=== PATIENT | female | born 1960 | race African-American/Black ===

== ENCOUNTER 2019-01-14 12:10 | Inpatient (IN) | payer OTHER ==
[2019-01-14 13:52] VITALS: BMI 24.0
--- NOTE | 2019-01-14 16:15 | HP ---
COWS - Scale Resting Pulse: 0= [place] 80 or Below Sweatin= Chills/Flushing Restless Observation: 1= Difficult to Sit Still Pupil Size: 2= Moderately Dilated Bone or Joint Aches: 2= Severe Diffuse Aches Runny Nose/ Eye Tearin= Runny Nose/Eyes GI Upset > 30mins: 2= Nausea/Diarrhea Tremor Observation: 2= Slight Tremor Visible Yawning Observation: 1= 1-2x During Session Anxiety or Irritability: 2=Irritable/Anxious Goose Flesh Skin: 0=Smooth Skin COWS Score: 15 CIWA Score Nausea/Vomitin Muscle Tremors: 3 Anxiety: 3 Agitation: 4-Moderately Restless Paroxysmal Sweats: 2 Orientation: 0-Oriented Tacttile Disturbances: 0-None Auditory Disturbances: 0-None Visual Disturbances: 2-Mild Sensitivity Headache: 2-Mild CIWA-Ar Total Score: 18 - Admission Criteria [facility]ASAS Guidelines: Admission for Medically Managed Detox: Requires at least one of the followin. CIWA greater than 12 2. Seizures within the past 24 hours 3. Delirium tremens within the past 24 hours 4. Hallucinations within the past 24 hours 5. Acute intervention needed for co occurring medical disorder 6. Acute intervention needed for co occurring psychiatric disorder 7. Severe withdrawal that cannot be handled at a lower level of care (continued vomiting, continued diarrhea, abnormal vital signs) requiring intravenous medication and/or fluids 8. Patient presents the following: CIWA greater than 12 Admission Criteria Met: Admission criteria met Admission [facility] Chief Complaint: I NEED TO GET CLEAN MY PROGRAM SENT ME Allergies/Adverse Reactions: Allergies Allergy/AdvReac Type Severity Reaction Status Date / Time No Known Allergies Allergy Verified 01/14/19 13:36 History of Present Illness: RELAPSED 1 Y AGO PREVIOUSLY ABSTINENT X 20 YEARS BEGAN USING AGE 16 RECREATIONALLY BECAME PROBLEMATIC AGE 32 DETOX AND REHAB AGE 36 ABSTINENT THEN RELAPSED SECONDARY TO STRESS FROM LOSS OF MOTHER CURRENTLY IN OUTPT - Ebola screening Have you traveled outside of the country in the last 21 days: No Have you had contact with anyone from an Ebola affected area: No Do you have a fever: No - Review of Systems Constitutional: Loss of Appetite, Unintentional Wgt. Loss EENT: reports: Tearing Respiratory: reports: No Symptoms reported Cardiac: reports: No Symptoms Reported GI: reports: Nausea, Abdominal cramping : reports: No Symptoms Reported Musculoskeletal: reports: No Symptoms Reported Integumentary: reports: No Symptoms Reported Neuro: reports: Headache Endocrine: reports: Unexplained Weight Loss Hematology: reports: No Symptoms Reported Psychiatric: reports: Anxious, Depressed Patient History - Patient Medical History Hx Anemia: No Hx Asthma: No Hx Chronic Obstructive Pulmonary Disease (COPD): Yes Hx Cancer: No Hx Cardiac Disorders: Yes ([facility] IN 2017) Hx Congestive Heart Failure: No Hx Hypertension: Yes Hx Hypercholesterolemia: Yes Hx Pacemaker: No HX Cerebrovascular Accident: No Hx Seizures: No Hx Dementia: No Hx Diabetes: No Hx Gastrointestinal Disorders: No Hx Liver Disease: No Hx Genitourinary Disorders: No Hx Sexually Transmitted Disorders: No Hx Renal Disease (ESRD): No Hx Thyroid Disease: Yes (HYPERTHYROID) Hx Human Immunodeficiency Virus (HIV): No Hx Hepatitis C: No Hx Depression: Yes (NO MED OR PSYCH) Hx Suicide Attempt: No Hx Bipolar Disorder: No Hx Schizophrenia: No - Patient Surgical History Hx Cardiac Surgery: Yes Hx Hysterectomy: Yes (2002) - Reproductive History Patient is a Female of Child Bearing Age (11 -55 yrs old): No Last Menstrual Period: 12/28/02 - Smoking Cessation Smoking history: Current every day smoker Aproximately how many cigarettes per day: 10 Initiated information on smoking cessation: Yes 'Breaking Loose' booklet given: 01/14/19 - Substance & Tx. History Hx Alcohol Use: Yes Hx Substance Use: Yes Substance Use Type: Alcohol, Heroin - Substances abused Alcohol Substance route: Oral Frequency: 3-6 times per week Amount used: 18 0z beer (8 cans) Age of first use: 16 Date of last use: 01/13/19 Heroin Substance route: Oral Frequency: Daily Amount used: 6 bags Age of first use: 58 Date of last use: 01/13/19 Family Disease History - Family Disease History Family Disease History: Diabetes: Mother, CA: Mother, Other: Grandparent ( SUBSTANCE), Brother, Sister Admission Physical Exam BHS - Vital Signs Vital Signs: Vital Signs - 24 hr 01/14/19 13:43 Temperature 97.3 F L Pulse Rate 66 Respiratory 16 Rate Blood Pressure 159/82 - Physical General Appearance: Yes: Irritable, Sweating, Anxious HEENTM: Yes: EOMI Respiratory: Yes: Chest Non-Tender, Lungs Clear Neck: Yes: No masses,lesions,Nodules Breast: Yes: Breast Exam Deferred Cardiology: Yes: Within Normal Limits, Regular Rhythm, Regular Rate, S1, S2 Abdominal: Yes: Normal Bowel Sounds, Non Tender Genitourinary: Yes: Within Normal Limits Back: Yes: Within Normal Limits Musculoskeletal: Yes: Within Normal Limits Extremities: Yes: Within Normal Limits Neurological: Yes: Within Normal Limits Integumentary: Yes: Within Normal Limits Lymphatic: Yes: Within Normal Limits - Diagnostic (1) Opiate dependence Current Visit: Yes Status: Acute (2) Alcohol dependence in controlled environment Current Visit: Yes Status: Acute (3) Opiate withdrawal Current Visit: Yes Status: Acute (4) Alcohol withdrawal Current Visit: Yes Status: Acute (5) Coronary artery disease Current Visit: Yes Status: Acute (6) Stented coronary artery Current Visit: No Status: Chronic (7) Hyperthyroidism Current Visit: No Status: Chronic Breathalyzer - Breathalyzer Breathalyzer: 0 Urine Drug Screen - Test Device Lot number: [id number] Expiration date: 10/27/20 - Control Is test valid?: Yes - Results Drug screen NEGATIVE: No Urine drug screen results: FEN-Fentanyl, MOP-Opiates, MDMA-Ecstasy Inpatient Rehab Admission - Rehab Decision to Admit Inpatient rehab admission?: No
[2019-01-14] MEDS ORDERED: MENTHOL/PHENOL 1 EACH UD MM PRN (16:32)
[2019-01-14] MEDS ORDERED: MAGNESIUM CITRATE 300 ML BOTTLE PO PRN (16:32)
[2019-01-14] MEDS ORDERED: ACETAMINOPHEN 325 MG TABLET (FP) PO PRN (16:32)
[2019-01-14] MEDS ORDERED: IBUPROFEN 400 MG TABLET (FP) PO PRN (16:32)
[2019-01-14] MEDS ORDERED: cloNIDine HCL 0.1 MG TABLET PO PRN (16:32)
[2019-01-14] MEDS ORDERED: chlordiazePOXIDE HCL 10 MG CAPSULE PO PRN (16:32)
[2019-01-14] MEDS ORDERED: BISMUTH SUBSALICYLATE 524 MG/30 ML UD PO PRN (16:32)
[2019-01-14] MEDS ORDERED: MAGNESIUM HYDROX 2400MG/30ML ORAL SUSPENSION 30 ML CUP PO PRN (16:32)
[2019-01-14] MEDS ORDERED: MAG HYDROX/AL HYDROX/SIMETH 30 ML UNIT-DOSE CUP PO PRN (16:32)
[2019-01-14] MEDS ORDERED: METHADONE HCL 10 MG TABLET (FOR DETOX USE ONLY) PO ONE (17:15)
[2019-01-14] MEDS: BUDESONIDE/FORMETEROL FUMARATE 160/4.5 mcg INHALER IH SCH (22:33)
[2019-01-14] MEDS: MELATONIN 5 MG TABLETS PO PRN (22:34)
[2019-01-14] MEDS: ATORVASTATIN CA 80 MG TABLET (FP) PO SCH (22:34)
[2019-01-14] MEDS: THIAMINE HCL 100 MG TABLET (FP) PO SCH (22:34)
[2019-01-14] MEDS: LABETALOL HCL 200 MG TABLET (FP) PO SCH (22:34)
[2019-01-14] MEDS: chlordiazePOXIDE HCL 25 MG CAPSULE PO SCH (22:34)
[2019-01-15] MEDS: chlordiazePOXIDE HCL 25 MG CAPSULE PO SCH ×3 (05:33→20:55)
[2019-01-15] MEDS ORDERED: METHADONE HCL 5 MG TABLET (FOR DETOX USE ONLY) PO ONE (10:00)
[2019-01-15] MEDS: PRENATAL VITAMINS W/ FOLIC ACID TABLET (FP) PO SCH (10:24)
[2019-01-15] MEDS: BUDESONIDE/FORMETEROL FUMARATE 160/4.5 mcg INHALER IH SCH ×2 (10:24→21:00)
[2019-01-15] MEDS: LABETALOL HCL 200 MG TABLET (FP) PO SCH ×2 (10:24→21:56)
[2019-01-15] MEDS: CLOPIDOGREL BISULFATE 75 MG TABLET (FP) PO SCH (10:24)
[2019-01-15] MEDS: NICOTINE 14 MG/24 HOURS TOPICAL PATCH TD SCH (10:41)
[2019-01-15] MEDS: PROCHLORPERAZINE MALEATE 5 MG TABLET PO PRN ×3 (10:42→20:56)
[2019-01-15 12:14] LABS: HEMATOCRIT 38.1 % (32.4-45.2); HEMOGLOBIN 12.7 GM/dL (10.7-15.3); MCHC 33.4 g/dl (32.0-36.0); MEAN CELL VOLUME 95.7 fl (80-96); MEAN PLT VOLUME 8.8 fl (7.5-11.1); PLATELET COUNT 213 K/MM3 (134-434); RBC 3.98 M/mm3 (3.60-5.2); RDW 14.3 % (11.6-15.6); WHITE BLOOD COUNT 5.5 K/mm3 (4.0-10.0)
[2019-01-15 12:18] LABS: ALBUMIN 3.6 g/dl (3.4-5.0); BILIRUBIN,TOTAL 0.7 mg/dL (0.2-1); BLOOD UREA NITROGEN 11.2 mg/dL (7-18); CALCIUM 8.7 mg/dL (8.5-10.1); CREATININE 0.8 mg/dL (0.55-1.3); POTASSIUM 3.9 mmol/L (3.5-5.1); TOT PROT 6.4 g/dl (6.4-8.2)
--- NOTE | 2019-01-15 16:12 | PN ---
[facility] CIWA - CIWA Score Nausea/Vomitin-No Nausea/No Vomiting Muscle Tremors: 3 Anxiety: 3 Agitation: 2 Paroxysmal Sweats: 2 Orientation: 0-Oriented Tacttile Disturbances: 2-Mild Itch/Numbness/Burn Auditory Disturbances: 0-None Visual Disturbances: 2-Mild Sensitivity Headache: 0-None Present CIWA-Ar Total Score: 14 S COWS - Scale Resting Pulse: 0= [place] 80 or Below Sweatin= Chills/Flushing Restless Observation: 1= Difficult to Sit Still Pupil Size: 0= Normal to Room Light Bone or Joint Aches: 0= None Runny Nose/ Eye Tearin= None GI Upset > 30mins: 0= None Tremor Observation of Outstretched Hands: 2= Slight Tremor Visible Yawning Observation: 1= 1-2x During Session Anxiety or Irritability: 2=Irritable/Anxious Goose Flesh Skin: 3=Piloerection COWS Score: 10 S Progress Note (SOAP) Subjective: Sweating, Tremors, Chills, Anxious. Objective: PATIENT A & O X 3, OBSERVED AMBULATING ON UNIT UNASSISTED. IN NO ACUTE DISTRESS. 01/15/19 16:13 Vital Signs Temperature 97.2 F L 01/15/19 13:56 Pulse Rate 63 01/15/19 13:56 Respiratory Rate 18 01/15/19 13:56 Blood Pressure 171/91 H 01/15/19 13:56 O2 Sat by Pulse Oximetry (%) Laboratory Tests 01/14/19 01/15/19 01/15/19 15:44 07:00 07:00 WBC 5.5 RBC 3.98 Hgb 12.7 Hct 38.1 MCV 95.7 MCH 32.0 MCHC 33.4 RDW 14.3 Plt Count 213 MPV 8.8 Sodium 142 Potassium 3.9 Chloride 108 H Carbon Dioxide 31 Anion Gap 3 L BUN 11.2 Creatinine 0.8 Est GFR (CKD-EPI)AfAm 95.52 Est GFR (CKD-EPI)NonAf 82.42 Random Glucose 94 Calcium 8.7 Total Bilirubin 0.7 AST 22 ALT 55 Alkaline Phosphatase 41 L Total Protein 6.4 Albumin 3.6 POC Urine HCG, Qual Negative LABS NOTED. ADMISSION RPR, QFT / TB TEST RESULTS PENDING. 01/15/19 16:13 Assessment: 01/15/19 16:13 WITHDRAWAL SYMPTOMS. HYPERTENSION. Plan: CONTINUE DETOX. INCREASE DAILY PO WATER INTAKE. CONTINUE TO MONITOR BP (PATIENT CURRENTLY PRESCRIBED LABETOLOL, 200 MG PO BID RO TREATMENT OF HYPERTENSION). WILL CONTINUE TO MONITOR BP TO SEE IF SUBSEQUENT MEDICATION MODIFICATIONS ARE NECESSARY.
[2019-01-15] MEDS: hydrOXYzine HCL 25 MG TABLET (FP) PO PRN (20:56)
[2019-01-15] MEDS: MELATONIN 5 MG TABLETS PO PRN (20:56)
[2019-01-15] MEDS: ATORVASTATIN CA 80 MG TABLET (FP) PO SCH (21:00)
[2019-01-15] MEDS: THIAMINE HCL 100 MG TABLET (FP) PO SCH (21:00)
[2019-01-15] MEDS ORDERED: LABETALOL HCL 100 MG TABLET (FP) ONE (21:53)
[2019-01-16] MEDS: chlordiazePOXIDE 5 MG CAPSULE PO SCH ×3 (05:59→22:07)
[2019-01-16] MEDS ORDERED: METHADONE HCL 10 MG TABLET (FOR DETOX USE ONLY) PO ONE (10:00)
[2019-01-16] MEDS: PRENATAL VITAMINS W/ FOLIC ACID TABLET (FP) PO SCH (10:31)
[2019-01-16] MEDS: BUDESONIDE/FORMETEROL FUMARATE 160/4.5 mcg INHALER IH SCH ×2 (10:31→22:06)
[2019-01-16] MEDS: CLOPIDOGREL BISULFATE 75 MG TABLET (FP) PO SCH (10:31)
[2019-01-16] MEDS: NICOTINE 14 MG/24 HOURS TOPICAL PATCH TD SCH (10:31)
--- NOTE | 2019-01-16 13:17 | PN ---
S CIWA - CIWA Score Nausea/Vomitin-No Nausea/No Vomiting Muscle Tremors: None Anxiety: 3 Agitation: 1-Slight > Activity Paroxysmal Sweats: 3 (and Chills.) Orientation: 0-Oriented Tacttile Disturbances: 1-Very Mild Itch/Numbness Auditory Disturbances: 0-None Visual Disturbances: 1-Very Mild Sensitivity Headache: 0-None Present CIWA-Ar Total Score: 9 BHS COWS - Scale Resting Pulse: 0= [place] 80 or Below Sweatin= Chills/Flushing Restless Observation: 1= Difficult to Sit Still Pupil Size: 0= Normal to Room Light Bone or Joint Aches: 0= None Runny Nose/ Eye Tearin= None GI Upset > 30mins: 0= None Tremor Observation of Outstretched Hands: 0= None Yawning Observation: 1= 1-2x During Session Anxiety or Irritability: 2=Irritable/Anxious Goose Flesh Skin: 3=Piloerection COWS Score: 8 BHS Progress Note (SOAP) Subjective: Sweating, Chills, Anxious. Patient reports that current Withdrawal / Detox symptoms are minimal in degree and that he feels well overall. Objective: PATIENT A & O X 3, OBSERVED AMBULATING ON UNIT UNASSISTED. IN NO ACUTE DISTRESS. 01/16/19 13:16 Vital Signs Temperature 98.8 F 01/16/19 09:28 Pulse Rate 64 01/16/19 09:28 Respiratory Rate 18 01/16/19 09:28 Blood Pressure 148/96 01/16/19 09:28 O2 Sat by Pulse Oximetry (%) Laboratory Tests 01/14/19 01/15/19 01/15/19 15:44 07:00 07:00 WBC 5.5 RBC 3.98 Hgb 12.7 Hct 38.1 MCV 95.7 MCH 32.0 MCHC 33.4 RDW 14.3 Plt Count 213 MPV 8.8 Sodium 142 Potassium 3.9 Chloride 108 H Carbon Dioxide 31 Anion Gap 3 L BUN 11.2 Creatinine 0.8 Est GFR (CKD-EPI)AfAm 95.52 Est GFR (CKD-EPI)NonAf 82.42 Random Glucose 94 Calcium 8.7 Total Bilirubin 0.7 AST 22 ALT 55 Alkaline Phosphatase 41 L Total Protein 6.4 Albumin 3.6 POC Urine HCG, Qual Negative RPR Titer 01/15/19 07:00 WBC RBC Hgb Hct MCV MCH MCHC RDW Plt Count MPV Sodium Potassium Chloride Carbon Dioxide Anion Gap BUN Creatinine Est GFR (CKD-EPI)AfAm Est GFR (CKD-EPI)NonAf Random Glucose Calcium Total Bilirubin AST ALT Alkaline Phosphatase Total Protein Albumin POC Urine HCG, Qual RPR Titer Nonreactive LABS NOTED. RESULTS OF QFT /TB TEST PENDING. 01/16/19 13:16 Assessment: 01/16/19 13:16 WITHDRAWAL SYMPTOMS. Plan: CONTINUE DETOX. CONTINUE TO MONITOR BP.
[2019-01-16] MEDS: LABETALOL HCL 200 MG TABLET (FP) PO SCH ×2 (13:27→22:33)
[2019-01-16] MEDS: ACETAMINOPHEN 325 MG TABLET (FP) PO PRN (18:48)
[2019-01-16] MEDS: METHOCARBAMOL 500 MG TABLET PO PRN (18:49)
[2019-01-16] MEDS ORDERED: IBUPROFEN 400 MG TABLET (FP) PO ONE (21:32)
--- NOTE | 2019-01-16 21:34 | PN ---
S Progress Note Note: Patient complained of bilateral knee pain. Vital Signs Temperature 99.1 F 01/16/19 14:22 Pulse Rate 73 01/16/19 18:36 Respiratory Rate 17 01/16/19 18:36 Blood Pressure 140/93 01/16/19 18:36 O2 Sat by Pulse Oximetry (%) Action: Motrin 400mg tablet oral ordered
[2019-01-16] MEDS: ATORVASTATIN CA 80 MG TABLET (FP) PO SCH (22:06)
[2019-01-16] MEDS: THIAMINE HCL 100 MG TABLET (FP) PO SCH (22:06)
[2019-01-16] MEDS: MELATONIN 5 MG TABLETS PO PRN (22:08)
[2019-01-17] MEDS ORDERED: chlordiazePOXIDE HCL 10 MG CAPSULE PO PRN
[2019-01-17] MEDS: chlordiazePOXIDE HCL 10 MG CAPSULE PO SCH ×3 (05:53→21:51)
[2019-01-17] MEDS ORDERED: METHADONE HCL 5 MG TABLET (FOR DETOX USE ONLY) PO ONE (06:00)
[2019-01-17] MEDS: hydrOXYzine HCL 25 MG TABLET (FP) PO PRN (10:06)
[2019-01-17] MEDS: CLOPIDOGREL BISULFATE 75 MG TABLET (FP) PO SCH (10:06)
[2019-01-17] MEDS: PRENATAL VITAMINS W/ FOLIC ACID TABLET (FP) PO SCH (10:06)
[2019-01-17] MEDS: BUDESONIDE/FORMETEROL FUMARATE 160/4.5 mcg INHALER IH SCH ×2 (10:06→21:50)
[2019-01-17] MEDS: NICOTINE 14 MG/24 HOURS TOPICAL PATCH TD SCH (10:07)
[2019-01-17] MEDS: LABETALOL HCL 200 MG TABLET (FP) PO SCH ×2 (10:07→21:50)
[2019-01-17] MEDS: METHOCARBAMOL 500 MG TABLET PO PRN ×2 (11:42→17:39)
[2019-01-17] MEDS: ACETAMINOPHEN 325 MG TABLET (FP) PO PRN ×2 (11:42→17:38)
--- NOTE | 2019-01-17 13:06 | PN ---
[facility] CIWA - CIWA Score Nausea/Vomitin-No Nausea/No Vomiting Muscle Tremors: 2 Anxiety: 2 Agitation: 2 Paroxysmal Sweats: 1-Minimal Palms Moist Orientation: 0-Oriented Tacttile Disturbances: 0-None Auditory Disturbances: 0-None Visual Disturbances: 0-None Headache: 0-None Present CIWA-Ar Total Score: 7 BHS COWS - Scale Resting Pulse: 0= [place] 80 or Below Sweatin= Chills/Flushing Restless Observation: 0= Sits Still Pupil Size: 0= Normal to Room Light Bone or Joint Aches: 1= Mild Discomfort Runny Nose/ Eye Tearin= Nasal Congestion GI Upset > 30mins: 1= Stomach Cramp Tremor Observation of Outstretched Hands: 1= Tremor [place], Not Seen Yawning Observation: 1= 1-2x During Session Anxiety or Irritability: 1=Feels Anxious/Irritable Goose Flesh Skin: 0=Smooth Skin COWS Score: 7 S Progress Note (SOAP) Subjective: patient stated that she is no longer vomiting x "a couple of days" tolerated food and fluid well ambulating on hallway social with peers less tremor patient is taking endocet 10-325 mg po bid last monthly filled 12/29/18 patient prefers return to pain management clinic upon discharged from detox Objective: 01/17/19 13:18 Vital Signs Temperature 97.4 F L 01/17/19 09:11 Pulse Rate 67 01/17/19 09:11 Respiratory Rate 16 01/17/19 09:11 Blood Pressure 159/92 01/17/19 09:11 O2 Sat by Pulse Oximetry (%) Laboratory Last Values WBC 5.5 K/mm3 (4.0-10.0) 01/15/19 07:00 RBC 3.98 M/mm3 (3.60-5.2) 01/15/19 07:00 Hgb 12.7 GM/dL (10.7-15.3) 01/15/19 07:00 Hct 38.1 % (32.4-45.2) 01/15/19 07:00 MCV 95.7 fl (80-96) 01/15/19 07:00 MCH 32.0 pg (25.7-33.7) 01/15/19 07:00 MCHC 33.4 g/dl (32.0-36.0) 01/15/19 07:00 RDW 14.3 % (11.6-15.6) 01/15/19 07:00 Plt Count 213 K/MM3 (134-434) 01/15/19 07:00 MPV 8.8 fl (7.5-11.1) 01/15/19 07:00 Sodium 142 mmol/L (136-145) 01/15/19 07:00 Potassium 3.9 mmol/L (3.5-5.1) 01/15/19 07:00 Chloride 108 mmol/L (98-107) H 01/15/19 07:00 Carbon Dioxide 31 mmol/L (21-32) 01/15/19 07:00 Anion Gap 3 MMOL/L (8-16) L 01/15/19 07:00 BUN 11.2 mg/dL (7-18) 01/15/19 07:00 Creatinine 0.8 mg/dL (0.55-1.3) 01/15/19 07:00 Est GFR (CKD-EPI)AfAm 95.52 01/15/19 07:00 Est GFR (CKD-EPI)NonAf 82.42 01/15/19 07:00 Random Glucose 94 mg/dL (74-106) 01/15/19 07:00 Calcium 8.7 mg/dL (8.5-10.1) 01/15/19 07:00 Total Bilirubin 0.7 mg/dL (0.2-1) 01/15/19 07:00 AST 22 U/L (15-37) 01/15/19 07:00 ALT 55 U/L (13-61) 01/15/19 07:00 Alkaline Phosphatase 41 U/L (45-117) L 01/15/19 07:00 Total Protein 6.4 g/dl (6.4-8.2) 01/15/19 07:00 Albumin 3.6 g/dl (3.4-5.0) 01/15/19 07:00 POC Urine HCG, Qual Negative 01/14/19 15:44 RPR Titer Nonreactive (NONREACTIVE) 01/15/19 07:00 lab noted Assessment: 01/17/19 13:20 alcohol and opiate withdrawal sx Plan: continue alcohol and opiate detox
[2019-01-17] MEDS: ATORVASTATIN CA 80 MG TABLET (FP) PO SCH (21:50)
[2019-01-17] MEDS: THIAMINE HCL 100 MG TABLET (FP) PO SCH (21:50)
[2019-01-18] MEDS ORDERED: chlordiazePOXIDE HCL 10 MG CAPSULE PO ONE (05:00)
[2019-01-18] MEDS: BUDESONIDE/FORMETEROL FUMARATE 160/4.5 mcg INHALER IH SCH (09:03)
[2019-01-18] MEDS: CLOPIDOGREL BISULFATE 75 MG TABLET (FP) PO SCH (09:03)
[2019-01-18] MEDS: PRENATAL VITAMINS W/ FOLIC ACID TABLET (FP) PO SCH (09:03)
[2019-01-18] MEDS: LABETALOL HCL 200 MG TABLET (FP) PO SCH (09:03)
[2019-01-18 10:15] VITALS: BP 152/92; PULSE 70; TEMP 98.5
--- NOTE | 2019-01-18 13:00 | DS ---
[facility] Detox Discharge Summary Admission Date: 01/14/19 Discharge Date: 01/18/19 - History Present History: Alcohol Dependence, Opioid Dependence Additional Comments: 58 years old female admitted on 01/14/19 for acute alcohol and opiate withdrawal sx management no complication throughout the detox stay bgm and bp within acceptable range alert oriented x 3 S1S2 no shortness of breath denies vomiting no diarrhea Pertinent Past History: lower extremities dvt asthma copd hypertension - Physical Exam Results Vital Signs: Vital Signs Temperature 98.5 F 01/18/19 10:14 Pulse Rate 70 01/18/19 10:14 Respiratory Rate 16 01/18/19 10:14 Blood Pressure 152/92 01/18/19 10:14 O2 Sat by Pulse Oximetry (%) Pertinent Admission Physical Exam Findings: alcohol and opiate withdrawal sx Laboratory Last Values WBC 5.5 K/mm3 (4.0-10.0) 01/15/19 07:00 RBC 3.98 M/mm3 (3.60-5.2) 01/15/19 07:00 Hgb 12.7 GM/dL (10.7-15.3) 01/15/19 07:00 Hct 38.1 % (32.4-45.2) 01/15/19 07:00 MCV 95.7 fl (80-96) 01/15/19 07:00 MCH 32.0 pg (25.7-33.7) 01/15/19 07:00 MCHC 33.4 g/dl (32.0-36.0) 01/15/19 07:00 RDW 14.3 % (11.6-15.6) 01/15/19 07:00 Plt Count 213 K/MM3 (134-434) 01/15/19 07:00 MPV 8.8 fl (7.5-11.1) 01/15/19 07:00 Sodium 142 mmol/L (136-145) 01/15/19 07:00 Potassium 3.9 mmol/L (3.5-5.1) 01/15/19 07:00 Chloride 108 mmol/L (98-107) H 01/15/19 07:00 Carbon Dioxide 31 mmol/L (21-32) 01/15/19 07:00 Anion Gap 3 MMOL/L (8-16) L 01/15/19 07:00 BUN 11.2 mg/dL (7-18) 01/15/19 07:00 Creatinine 0.8 mg/dL (0.55-1.3) 01/15/19 07:00 Est GFR (CKD-EPI)AfAm 95.52 01/15/19 07:00 Est GFR (CKD-EPI)NonAf 82.42 01/15/19 07:00 Random Glucose 94 mg/dL (74-106) 01/15/19 07:00 Calcium 8.7 mg/dL (8.5-10.1) 01/15/19 07:00 Total Bilirubin 0.7 mg/dL (0.2-1) 01/15/19 07:00 AST 22 U/L (15-37) 01/15/19 07:00 ALT 55 U/L (13-61) 01/15/19 07:00 Alkaline Phosphatase 41 U/L (45-117) L 01/15/19 07:00 Total Protein 6.4 g/dl (6.4-8.2) 01/15/19 07:00 Albumin 3.6 g/dl (3.4-5.0) 01/15/19 07:00 POC Urine HCG, Qual Negative 01/14/19 15:44 RPR Titer Nonreactive (NONREACTIVE) 01/15/19 07:00 TB (QFT) Incubation (.) 01/15/19 07:00 TB Test (QFT) Nil 0.05 IU/mL (.) 01/15/19 07:00 TB Test (QFT) Mitogen >10.00 IU/mL (.) 01/15/19 07:00 TB Test (QFT) Antigen 0.03 IU/mL (.) 01/15/19 07:00 TB Test (QFT) Negative (Negative) 01/15/19 07:00 TB Positive Criteria (.) 01/15/19 07:00 lab noted - Treatment Hospital Course: Detox Protocol Followed, Detoxed Safely, Responded well, Discharged Condition Good, Rehab Referral Accepted Patient has Accepted a Rehab Referral to: community support approach - Medication Discharge Medications: Ambulatory Orders Aspirin 81 01/14/19 Atorvastatin Calcium 80 mg PO 01/14/19 Clopidogrel Bisulfate [Clopidogrel] 75 mg PO 01/14/19 SYMBICORT 160/4.5mcg - 01/14/19 Atorvastatin Ca [Lipitor] 80 mg PO HS #30 tablet 01/18/19 Budesonide/Formeterol Fumarate [SYMBICORT 160/4.5mcg -] 2 puff IH BID #1 inhaler 01/18/19 Clopidogrel Bisulfate [Plavix -] 75 mg PO DAILY #30 tablet 01/18/19 Labetalol HCl [Normodyne -] 200 mg PO BID #60 tablet 01/18/19 - Diagnosis (1) Uncomplicated opioid dependence Status: Acute (2) Alcohol dependence in controlled environment Status: Acute (3) Hypertension Status: Chronic Qualifiers: Hypertension type: essential hypertension Qualified Code(s): I10 - Essential (primary) hypertension (4) DVT (deep venous thrombosis) Status: Chronic Qualifiers: DVT location: lower extremity Affected thrombotic vein of extremity: unspecified vein of extremity Chronicity: unspecified Laterality: unspecified laterality Qualified Code(s): I82.409 - Acute embolism and thrombosis of unspecified deep veins of unspecified lower extremity (5) Asthma Status: Chronic Qualifiers: Asthma severity: mild Asthma persistence: intermittent - AMA Did Patient Leave Against Medical Advice: No
== END 2019-01-18 09:07 | disposition home or self-care (01) | DRG 773 ==
LOC: YASAS 12:10 → Y3N 16:54
PROVIDERS: ADMIT Surgery; ATTEND Surgery
PROC: HZ2ZZZZ Detoxification Services for Substance Abuse Treatment (ICD-10-PCS; principal; 2019-01-14)
DX: F11.23 Opioid dependence with withdrawal (principal); F10.230 Alcohol dependence with withdrawal, uncomplicated; I10 Essential (primary) hypertension; J44.9 Chronic obstructive pulmonary disease, unspecified; I25.2 Old myocardial infarction; E78.00 Pure hypercholesterolemia, unspecified; E05.90 Thyrotoxicosis, unspecified without thyrotoxic crisis or storm; Z86.718 Personal history of other venous thrombosis and embolism; Z95.5 Presence of coronary angioplasty implant and graft
CPT/HCPCS: 36415; 80053; 81025; 85027; 86480; 86593; J0735